=== PATIENT | male | born 1940 | race Caucasian/White ===

== ENCOUNTER → 2017-04-23 | Outpatient (CLI) | payer BC ==
[~2017-04-23] MED LIST: IBUP-1459 PO; [UNRECOGNIZED DRUG - CODE] PO
[2017-04-23 09:33] LABS: BASO % 0.6 %; BASO ABS # 0.02 K/uL (0-0.2); COMPLETE YES; EOS % 2.6 %; IG% 0.3 %; LYMPH % 37.5 %; LYMPH ABS # 1.17 K/uL (1.2-3.4); MEAN CELL VOLUME 95.9 fL (80-100); MEAN CORPUSCULAR HEMOGLOBIN 32.6 pg (25-34); MONO % 13.8 %; NEUT % 45.2 %; PLATELET COUNT 174 K/uL (130-400); RED BLOOD COUNT 4.38 M/uL (4.7-6.1); WHITE BLOOD COUNT 3.12 K/uL (4.8-10.8)
[2017-04-23 09:39] LABS: URINE APPEARANCE CLEAR (CLEAR); URINE BILIRUBIN NEG (NEG); URINE COLOR DK YELLOW; URINE NITRITE NEG (NEG); URINE PH 7.5 (4.5-7.5); URINE SPECIFIC GRAVITY 1.024 (1.000-1.030); UROBILINOGEN NEG (NEG)
[2017-04-23 09:46] LABS: MANUAL MICROSCOPIC REQUIRED? NO; REVIEW REQ? NO
[2017-04-23 09:56] LABS: CALCIUM 9.1 mg/dl (8.5-10.1)
[2017-04-23 10:02] LABS: BLOOD UREA NITROGEN 19 mg/dl (7-18); BUN/CREATININE RATIO 18.7 (10-20); CARBON DIOXIDE 26 mmol/L (21-32); CHLORIDE 106 mmol/L (98-107); CHOLESTEROL 154 mg/dl (0-200); CREATININE 0.99 mg/dl (0.60-1.40); GLUCOSE 93 mg/dl (70-99); SODIUM 141 mmol/L (136-145); TRIGLYCERIDES 82 mg/dl (0-150); VERY LOW DENSITY LIPOPROT CALC 16 mg/dl
[2017-04-23 10:05] LABS: CHOLESTEROL/HDL RATIO 3.1; HDL CHOLESTEROL 49 mg/dl; LDL CHOLESTEROL CALCULATED 89 mg/dl
[2017-04-23 10:06] LABS: ESTIMATED AVERAGE GLUCOSE 111 mg/dl; HA1C FLAG Normal (Normal)
--- NOTE | 2017-04-30 08:17 | CODING QUERY MEDICAL NECESSITY ---
CQSUPPORTING DIAGNOSIS NEEDED A supporting diagnosis is required for the test/procedure performed on this patient in order for us to be reimbursed by the patient's insurance. Please provide a supporting diagnosis for the following test/procedure listed below next to the test name along with your signature. *If there is no additional diagnosis for this patient that would support the following test/procedure please document that below next to the test/procedure. Test(s)/Procedure(s) that require a supporting diagnosis: DOS 04/23/17 GLYCATED HEMOGLOBIN Provider Signature: Date: Thank you Claribel Barrera [facility] Information Management Once completed, please kindly fax back to [phone] For questions please call [phone]
== END ==
LOC: C.LAB1850 07:36
PROVIDERS: ATTEND Internal Medicine
DX: I10 Essential (primary) hypertension (principal); R73.9 Hyperglycemia, unspecified

== ENCOUNTER → 2018-01-17 | Outpatient (CLI) | payer BC ==
[2018-01-17 17:02] LABS: INFLUENZA B ANTIGEN Neg for Influ B (NEG)
== END | disposition home or self-care (01) ==
LOC: C.LAB1850 15:16
PROVIDERS: ATTEND Internal Medicine
DX: J06.9 Acute upper respiratory infection, unspecified (principal)

== ENCOUNTER → 2018-07-07 | Outpatient (CLI) | payer BC ==
[2018-07-07 09:35] LABS: BASO % 0.5 %; BASO ABS # 0.02 K/uL (0-0.2); EOS % 2.6 %; HEMATOCRIT 40.3 % (42-52); HEMOGLOBIN 13.6 g/dL (14.0-18.0); IG# 0.02 K/uL (0.00-0.02); LYMPH % 34.3 %; MEAN CELL VOLUME 97.6 fL (80-100); MEAN CORPUSCULAR HEMOGLOBIN 32.9 pg (25-34); MEAN CORPUSCULAR HGB CONC 33.7 g/dl (32-36); MEAN PLATELET VOLUME 11.6 fL (7.4-10.4); MONO ABS # 0.57 K/uL (0.11-0.59); NEUT % 47.1 %; NEUT ABS # 1.78 K/uL (1.4-6.5); PLATELET COUNT 183 K/uL (130-400); RED CELL DISTRIBUTION WIDTH CV 13.3 % (11.5-14.5); RED CELL DISTRIBUTION WIDTH SD 47.3 fL (36.4-46.3); WHITE BLOOD COUNT 3.79 K/uL (4.8-10.8)
[2018-07-07 09:56] LABS: BLOOD UREA NITROGEN 27 mg/dl (7-18); CALCIUM 9.1 mg/dl (8.5-10.1); CARBON DIOXIDE 29 mmol/L (21-32); CHOLESTEROL 146 mg/dl (0-200); CREATININE 0.88 mg/dl (0.60-1.40); GLUCOSE 86 mg/dl (70-99); LDL CHOLESTEROL CALCULATED 85 mg/dl; POTASSIUM 3.9 mmol/L (3.5-5.1); SODIUM 139 mmol/L (136-145); URIC ACID 5.5 mg/dl (2.6-7.2)
[2018-07-07 10:04] LABS: HEMOGLOBIN A1C 5.4 % (4.5-5.6)
== END | disposition home or self-care (01) ==
LOC: C.LAB1850 08:00
PROVIDERS: ATTEND Internal Medicine
DX: I10 Essential (primary) hypertension (principal)

== ENCOUNTER 2025-05-30 08:08 | Inpatient (IN) ==
--- NOTE | 2025-05-29 09:44 | Anesthesiology Consultation ---
Date of Service May 29, 2025 Assessment & Plan (1) Encounter for pre-operative examination: Chart Review Chart Review: Acceptable Risk for Surgery (pending anesthesia evaluation and review of unconfirmed EKG stat DOS ) and Patient NOT seen in Pre Admission Testing Minimal aortic stenosis- discussed with Dr. Chappell. Most recent ECHO 02/2021. At PCP wellness visit 09/2024 - no significant murmur noted per documentation. No physical limitations per PAT nursing interview. Due to nature of procedure- patient can proceed as scheduled and will be monitored closely perioperatively. -Infectious Disease screening: Per PAT nursing assessment on 05/21/25. No known infectious disease contacts in past 10 days or current infectious disease symptoms. No recent travel outside the country. Seen by PCP 05/10/25= seen for recheck of lungs. Dx'ed with bronchitis at previous appt- treated with Z pack and Prednisone. Patient no longer having symptoms. Scheduled for upcoming carotid surgery and wanted recheck to ensure "everything was clear." Acute bronchitis- resolved. Completed treatment. Exam clear today. "Patient clear for surgery." History Surgery Operation Date: 05/30/25 09:40 Proposed Procedures p Left Transcarotid Artery Revascularization - Twin Mayer MD Height/Weight Height: 5 ft 9 in Weight: 80.739 kg Allergies Allergy/AdvReac Type Severity Reaction Status Date / Time No Known Drug Allergies Allergy Verified 05/21/25 08:23 Medications Home Medications Medication Instructions Recorded Confirmed Last Taken ibuprofen 200 mg tablet 400 mg PO Q6H PRN Pain 03/29/19 05/21/25 04/06/19 06:00 fexofenadine 180 mg tablet 180 mg PO DAILY PRN seasonal 03/31/23 05/21/25 Unknown (Allergy Relief (fexofenadine)) allergies aspirin 81 mg tablet,delayed 81 mg PO QAM 05/21/25 05/21/25 Unknown release cyanocobalamin (vitamin B-12) 1,000 mcg PO QAM 05/21/25 05/21/25 Unknown 1,000 mcg capsule ferrous gluconate 324 mg (38 mg 324 mg PO BID 05/21/25 05/21/25 Unknown iron) tablet omeprazole 40 mg capsule,delayed 40 mg PO QAM 05/21/25 05/21/25 Unknown release rosuvastatin 40 mg tablet 40 mg PO QAM 05/21/25 05/21/25 Unknown telmisartan 40 1 tab PO QAM 05/21/25 05/21/25 Unknown mg-hydrochlorothiazide 12.5 mg tablet Past Medical History Medical History (Updated 05/29/25 @ 09:49 by Jordana Olson PA-C) Anemia Aortic stenosis Minimal per 02/2021 ECHO Carotid stenosis, asymptomatic Per 02/2025 Neck CTA= Left ICA 80% stenosis; Right ICA 60% stenosis Dyslipidemia GERD (gastroesophageal reflux disease) History of Mohs micrographic surgery for skin cancer Hx of basal cell carcinoma Hypertension 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; follows with heme Osteoarthritis Seasonal allergies Past Family History Family History Other No family history of adverse response to anesthesia Denies family history of Ovarian cancer Prostate cancer Breast cancer Colorectal cancer Cancer Past Surgical History Surgical History History of appendectomy History of cataract surgery R/L History of colonoscopy S/P arthroscopy of right shoulder Social History Smoking Status: Former smoker Do You Dip or Chew Tobacco: No Smoking End Date: quit over 50 years ago Hx Alcohol Use: Yes Alcohol type: wine alcohol intake frequency: holidays/special occasions only Hx Substance Use: No substance use type: does not use Lab Results Anesthesia Preop Results Results Anesthesia Widget: WBC 5.14 K/ul (4.8-10.8) 05/29/25 Hgb 12.0 g/dl (14.0-18.0) L 05/29/25 Hct 34.9 % (42.0-52.0) L 05/29/25 Plt 183 K/uL (130-400) 05/29/25 Na 141 mmol/L (136-145) 05/29/25 K 4.1 mmol/L (3.5-5.1) 05/29/25 Cl 106 mmol/L (98-107) 05/29/25 CO2 29 mmol/L (21-32) 05/29/25 BUN 26 mg/dl (6-23) H 05/29/25 Creat 1.02 mg/dl (0.6-1.4) 05/29/25 Glucose Level 93 mg/dl (70-99(Fasting)) 05/29/25 PT 11.1 Seconds (9.0-12.0) 05/29/25 PTT 25 Seconds (21-31) 05/29/25 INR 1.0 (0.9-1.1) 05/29/25 Blood Type O Positive 05/29/25 Antibody Screen NEGATIVE 05/29/25 Testing Electrocardiogram Date: 05/29/25 SB at 55bpm Incomplete RBBB Cannot rule out anterior infarct, age undetermined unconfirmed- will need reviewed by anesthesiologist DOS Chest X-Ray Date: 05/29/25 Findings: + NAD Echocardiogram Date: 02/28/21 EF: 60-65% LV Function: normal RWMA: + none Other Findings: + diastolic dysfunction (Grade I ); no LVH Normal chamber dimensions Aortic valve is trileaflet. Mild AV thickening. No hemodynamically significant valvular aortic stenosis. Based on the calculated MICHELE (1.8cm2) and dimensionless (0.50), the AV is minimally stenosed. Mild MR. Mild TR Mildly elevated estimated RVSP (30-40mmHg) (No murmur noted at 10/23/24 PCP wellness visit) Other Testing Neck CTA 03/15/25= Prominent calcified plaque of the left carotid bulb causes high-grade stenosis of 80%. 60% stenosis at the origin of the right ICA secondary to atherosclerotic plaque. 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 Patent vertebral arteries. No arterial occlusion identified.
[~2025-05-30 08:08] MED LIST changes: +DEXAMETHASONE SOD INJ 4 MG/ML VIAL ONE; +GLYCOPYRROLATE 0.2 MG/ML VIAL ONE; +HEPARIN SOD (PORCINE) 1000 UNIT/ML ONE; -IBUP-1459 PO; +LIDOCAINE 2% 2 ML VIAL/AMP(20MG/ML) INFIL ONE; +MIDAZOLAM HCL 1 MG/ML 2ML VIAL ONE; +ONDANSETRON INJ 2 MG/ML 2 ML VIAL ONE; +PHENYLEPHRINE HCL 25 MG/250 ML NSS IV ONE; +PROPOFOL IV EMULSION 10 MG/ML 20 ML VIAL IV ONE; +PROTAMINE SULFATE 10 MG/ML 5 ML VIAL IV ONE; +ROCURONIUM BROMIDE 10 MG/ML 5 ML VIAL IV ONE; +SUGAMMADEX SODIUM 200 MG/2 ML VIAL IV ONE; -[UNRECOGNIZED DRUG - CODE] PO
--- NOTE | 2025-05-30 08:24 | History & Physical Report ---
Date of Service May 30, 2025 Assessment & Plan (1) Stenosis of left internal carotid artery: Plan: Patient needed manage temporary left TCAR. I have discussed the risks options and benefits of the procedure with the patient. The patient understands the risks options and benefits and agrees to the procedure. he is already on History of Present Illness Chief Complaint: Left internal carotid artery stenosis Primary Care Provider: Erika Jimenez MD We had the pleasure of evaluating Mr Montague at our vascular surgery clinic today. As you know, he is an 84 year old male with history of asymptomatic, high grade left carotid artery stenosis. We last evaluated the patient about a month ago in February 2025 where he had a Duplex performed showing 70-79% stenosis of ICA with an ICA/CCA ratio of 4.5 and diastolic velocities over 90cm/s. We recommended a CTA of the neck for further evaluation and he is here today to discuss the results. On evaluation today, patient continues to deny any symptoms of sudden vision loss or amaurosis fugax, facial droop, difficulty speaking or swallowing, numbness or weakness to the face, unilateral extremity numbness, tingling or weakness. No episodes of aphasia or sudden onset of confusion or word finding difficulty. He states he has been feeling well. His daughter is an ED physician and is very involved in his care and making sure he follows up regarding his care. He is on [id number]. Allergies Allergy/AdvReac Type Severity Reaction Status Date / Time No Known Drug Allergies Allergy Verified 05/21/25 08:23 Home Medications Medication Instructions Recorded Confirmed Type ibuprofen 200 mg tablet 400 mg PO Q6H PRN Pain 03/29/19 05/21/25 History fexofenadine 180 mg tablet 180 mg PO DAILY PRN seasonal 03/31/23 05/21/25 History (Allergy Relief (fexofenadine)) allergies aspirin 81 mg tablet,delayed 81 mg PO QAM 05/21/25 05/30/25 History release cyanocobalamin (vitamin B-12) 1,000 mcg PO QAM 05/21/25 05/21/25 History 1,000 mcg capsule ferrous gluconate 324 mg (38 mg 324 mg PO BID 05/21/25 05/21/25 History iron) tablet omeprazole 40 mg capsule,delayed 40 mg PO QAM 05/21/25 05/30/25 History release rosuvastatin 40 mg tablet 40 mg PO QAM 05/21/25 05/30/25 History telmisartan 40 1 tab PO QAM 05/21/25 05/21/25 History mg-hydrochlorothiazide 12.5 mg tablet acetaminophen 500 mg capsule 1,000 mg (2 x 500 mg) PO DAILY PRN 05/29/25 Rx fever #60 caps clopidogrel 75 mg tablet 75 mg PO DAILY #30 tabs 05/29/25 05/30/25 Rx Past Med/Surg History Problem List (Updated 05/30/25 @ 08:23 by Twin Mayer MD) Stenosis of left internal carotid artery Encounter for pre-operative examination GERD (gastroesophageal reflux disease) Dyslipidemia Carotid stenosis, asymptomatic H/O seasonal allergies Postnasal drip Anemia (Chronic) Bilateral carotid bruits (Chronic) Hypertension (Chronic) Medical History (Updated 05/30/25 @ 08:23 by Twin Mayer MD) Aortic stenosis Minimal per 02/2021 ECHO Osteoarthritis 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; follows with heme Hypertension Seasonal allergies Anemia Carotid stenosis, asymptomatic Per 02/2025 Neck CTA= Left ICA 80% stenosis; Right ICA 60% stenosis Dyslipidemia Hx of basal cell carcinoma GERD (gastroesophageal reflux disease) History of Mohs micrographic surgery for skin cancer Surgical History S/P arthroscopy of right shoulder History of appendectomy History of cataract surgery R/L History of colonoscopy Family History Other No family history of adverse response to anesthesia Denies family history of Ovarian cancer Prostate cancer Breast cancer Colorectal cancer Cancer Social History Smoking Status: Former smoker Age Started Using Tobacco: 18; Age Quit Using Tobacco: 26; Smoking End Date: quit over 50 years ago; Second Hand Exposure: No; Do You Dip or Chew Tobacco: No; Tobacco Cessation Education Requested by Patient: No Hx Alcohol Use: Yes Alcohol type: wine Hx Substance Use: No Preferred Language: Slovak Communication Ability: Effective Air And Water Tester Required: No Beliefs That Will Affect Care: None Current Living Situation: Spouse Other Information That Helps Us Care for You: No Feels Safe at Home: Yes Safety Concerns: Feels Safe At This Time Dental Care, Regularly: Yes Seatbelt Use: always Sunscreen Use: Yes Assistive Devices: Glasses Review of Systems All systems reviewed & are unremarkable except as noted in HPI & below Physical Exam Physical Exam: Constitutional: In general patient is a healthy-appearing well-nourished well- developed elderly male distress. He is alert and oriented without any focal deficits. His left carotid does demonstrate a faint bruit. His heart is regular, lungs are clear. Abdomen is soft nontender with normal active bowel sounds in upper quadrants. Radial brachial and femoral pulse are +3. Lower ext remity distal pulses are +2. He is wrist capillary fill and no sign of distal ischemia.
[2025-05-30] MEDS: LACTATED RINGER'S 1,000 ML IV SCH ×2 (08:57→14:44)
--- NOTE | 2025-05-30 09:43 | History & Physical Bridge Note ---
Date of Service May 30, 2025 History & Physical Bridge Note I have examined the patient, reviewed the History & Physical and in the interval since the performance of the History & Physical I have noted the following changes of clinical significance: no changes noted
[2025-05-30] MEDS ORDERED: ATROPINE SULFATE 0.1 MG/ML 10ML SYR IV PRN (10:05)
[2025-05-30] MEDS ORDERED: ONDANSETRON INJ 2 MG/ML 2 ML VIAL IV PRN (10:05)
[2025-05-30] MEDS ORDERED: GLYCOPYRROLATE 0.2 MG/ML VIAL ONE (12:03)
[2025-05-30] MEDS: GELATIN SPONGE SZ 100 ONE (12:04)
[2025-05-30] MEDS: THROMBIN FOR SOLN 20000 UNIT KIT ONE (12:04)
[2025-05-30] MEDS: VISIPAQUE IV ONE (12:04)
[2025-05-30] MEDS: ceFAZolin 330 MG/ML 1 GM VIAL ONE ×2 (12:05→12:12)
--- NOTE | 2025-05-30 12:08 | Procedure Note ---
Angiogram Post Procedure Fluoroscopy Time (minutes): 2.9 Radiation (mGy): 28 Contrast: 9 Post Operative Report Pre & Post Diagnosis Operation Date: 05/30/25 09:40 Pre-Op Diagnosis: Left Internal Carotid Artery Stenosis Post-Op Diagnosis: Left Internal Carotid Artery Stenosis I identified the patient and participated in the time-out.: Yes Procedure Operation Date: 05/30/25 09:40 Actual Procedures p Left Transcarotid Artery Revascularization(Left), Ultrasound of right common femoral vein - Twin Mayer MD Surgeon Twin Mayer MD Inspection Machine Tender Kimberly,PAC Estimated Blood Loss 20 Findings Consistent with Post-Op Diagnosis Specimens none Anesthesia Type General Complications none Disposition Accompanied Patient To Recovery: No Disposition: Recovery Room Indications This is a gentleman who was found to have a preocclusive lesion of the left internal carotid artery. Intervention was recommended. He elected to go ahead with a TCAR approach. I have discussed the risks options and benefits of the procedure with the patient. The patient understands the risks options and benefits and agrees to the procedure. Description of Procedure The patient was taken to the operating room and placed in supine position. After general anesthesia was accomplished the groins and left side of the neck and chest were prepped and draped in a sterile manner. Timeout was performed and the patient was identified. A transverse incision was made just above the clavicle between the heads of the sternocleidomastoid. This was carried down to where the common carotid artery was identified. It was isolated and slung with an umbilical tape. A U-stitch was then placed in the common carotid artery with 5-0 Prolene. He was given 8000units of heparin at that time. Ultrasound was then used to localize the right common femoral vein. The vein was patent and compressed easily. Under ultrasound guidance the right common femoral vein was punctured and the venous sheath was inserted. This was aspirated and flushed with heparinized saline. An ACT at that time was 275. Using micropuncture technique the common carotid artery was punctured using a tunneling technique.. The micro sheath was inserted to 3 cm. Injection was then done showing the b ifurcation. There was a significant lesion seen just beyond the origin of the internal carotid artery on the left side. We reinserted the micro wire and passed it into the external carotid. We then advanced the dilator and sheath into the external carotid. The dilater and wire were removed. We then inserted the J-wire into the external carotid artery. The TCAR sheath was inserted. Once it was in place and held against the artery it was sutured to the chest wall and the incision edge. We then flushed the tubing appropriately. The venous return tubing was clamped onto the TCAR sheath. It was flushed through and then attached to the venous inflow sheath in the right groin. The sheath was checked for flow. The common carotid artery was then clamped. Flow through the venous return sheath was again checked and found to be adequate. We then inserted a 6 x 35 balloon backloaded on the wire. The wire was passed through the lesion into the petrous portion of the internal carotid. The 6 balloon was then advanced to the lesion. The lesion was then predilated with the 6 mm balloon. The balloon was removed. We then inserted the 10/8 x 40 stent. This was deployed across the lesion without difficulty. The catheter was removed. The carotid was allowed to go 2 minutes with flow reversal. We did another angiogram which showed no residual stenosis and a nicely seated stent.The wire was removed and the common carotid artery was unclamped. The venous return tubing was clamped and removed from the TCAR sheath. The blood was allowed to flow back into the venous system. The TCAR sheath was then removed and the 5-0 Prolene suture securely tied. Hemostasis was noted of the puncture site. The patient was given 25 mg of protamine. Another ACT was performed which was 135. The sheath was pulled from the groin and pressure was applied. Wound was irrigated with Ancef solution. Adequate hemostasis was obtained of the wound. Once this was noted the wound was closed in usual fashion using a 3-0 Vicryl suture for the subcutaneous layer and a 4-0 subcuticular Vicryl suture for the skin edges. Dermabond was used for dressing.The patient left the operation room in satisfactory condition and tolerated the procedure well. All needle and sponge counts were correct at the end of the procedure. Roxy Troncoso Pac assisted due to lack of resident availability and was necessary for positioning, draping, retraction, wound closure deep layers, subcutaneous tissue, and skin closure and was necessary for assisting with the case. I attest to the content of the Intraoperative Record and any orders documented therein. Any exceptions are noted below.
[2025-05-30] MEDS: SURGICEL ABSORB HEMOSTAT 2IN X 14IN TOP ONE (12:12)
[2025-05-30] MEDS: BUPIVACAINE/EPINEPHRINE 0.5% MPF 1:200,000 30 ML VIAL ONE (12:12)
[2025-05-30] MEDS: ARISTA ABSORBABLE HEMOSTAT 3GM TOP ONE (12:22)
--- NOTE | 2025-05-30 13:33 | Anesthesiology Progress Note ---
Date of Service May 30, 2025 Anesthesia Post Procedure Vital Signs Vital Signs: Temp Pulse Pulse Resp BP BP BP 05/30/25 13:20 36.2 C L 93 H 12 105/61 110/45 L 05/30/25 13:10 89 12 107/58 L 106/45 L 05/30/25 13:00 90 12 117/63 106/44 L 05/30/25 12:50 88 16 119/65 112/64 05/30/25 12:45 36.0 C L 105 H 20 114/63 05/30/25 08:28 36.8 C 56 L 20 153/74 H 149/69 H Pulse Ox O2 Del Method O2 Flow Rate 05/30/25 13:20 95 Room Air 05/30/25 13:10 94 Room Air 05/30/25 13:00 95 Room Air 05/30/25 12:50 98 Oxymask 4 05/30/25 12:45 98 Oxymask 6 05/30/25 08:28 97 Room Air Transfer of Care Handoff Completed per policy Notes Mental Status: alert / awake / arousable Patient Amnestic to Procedure: Yes Nausea / Vomiting: adequately controlled Pain: adequately controlled Airway Patency, RR, SpO2: stable & adequate BP & HR: stable & adequate Hydration State: stable & adequate Anesthetic Complications: no major complications apparent and Pt Satisfied with anesthetic care
[2025-05-30] MEDS ORDERED: STAT IV Infusion **Titration per Protocol STA (14:27)
[2025-05-30] MEDS ORDERED: FEXOFENADINE HCL 180 MG TAB PO PRN (14:27)
[2025-05-30] MEDS ORDERED: PHENYLEPHRINE/NSS 25 MG/250 ML BAG IV PRN (14:27)
[2025-05-30] MEDS ORDERED: IBUPROFEN 200 MG TAB PO PRN (14:27)
--- NOTE | 2025-05-30 19:06 | Critical Care Consultation ---
Date of Consultation May 30, 2025 Assessment & Plan (1) Stenosis of left internal carotid artery: (2) GERD (gastroesophageal reflux disease): (3) Dyslipidemia: (4) Hypertension: Plan Reason Critically Ill: 85 YOM presents s/p LEFT TCAR - POD #0 for routine postoperative monitoring. Neuro - S/P LT TCAR CAM ICU: NEGATIVE - no deficits, noted swelling to left TCAR site and groin- follow airway patent- surgeion updated by nursing staff - Pain control per surgery team Cardiac - Hx HTN, HLD - natiplatlet medications per surgical team - follow hemodynamics- vasoactive medication per surgery team Respiratory - No acute needs - Follow airway with swelling of LT TCAR site- as above - Hoarness following removal of ETT- should improve with time- if not consider ENT flexscope eval of chords GI - No acute needs RENAL/LYTES - No acute needs - No acute needs - COntinue PPI ENDO - No acute needs - goal BG <180mg/dl - ICU hyperglycemia protocol HEME - No acute needs - transufsion per primary service disrression ID - No concern for active infective process at this time LINES/IV ACCESS - PIV, arterial line Continue use of these lines DVT PROPHYLAXIS - SCDS DISPO: ICU overnight for continuous monitoring of hemodynamics, NV and CV status. I have personally spent 35 minutes of time in the direct management of this patient. This is a life/limb threatening event. This includes time spent evaluating patient, direct bedside care, chart review, placing orders, interpretation of diagnostic studies, discussion with consultants, patient, and family members, as well as other required patient management activities. This time is exclusive of all separately billable procedures, and teaching time and separate from and in addition to any other critical care service time. Thank you for allowing us to participate in the care of this patient. Please refer to my attending physician's documentation for any further recommendations. Supervising Physician Co-Signing Physician Notes Critical care will sign off History of Present Illness Reason for Consultation: Monitoring following TCAR Requesting Physician: Twin Mayer MD Attending Physician: Twin Mayer MD History of Present Illness 85 YOM with medical history of: HTN, MGUS, HLD, previous smoker, hoarnseness, OA, macrocytic anemia. Patient reports for Left TCAR secondary to LICA stenosis. Patient is POD #0 and to the ER. Patient was seen in the ICU on evening rounds. He is extubated and on room air, tolerating diet. Case reviewed with nurse at bedside with current concern for hematoma at LT. TCAR site and RT Groin site. Patient with mild swelling at LET TCAR site and following ice application and patient keeping head still, they both feel that this has decreased. There is no stridor and airway is patent. Patient remains in ICU overnight to follow hemodynamics as well as nV/CV exams of lower extremities. Currently on no vasoactive medications. CODE: FULL Allergies Allergy/AdvReac Type Severity Reaction Status Date / Time No Known Drug Allergies Allergy Verified 05/21/25 08:23 Home Medications Medication Instructions Recorded Confirmed Type ibuprofen 200 mg tablet 400 mg PO Q6H PRN Pain 03/29/19 05/30/25 History fexofenadine 180 mg tablet 180 mg PO DAILY PRN seasonal 03/31/23 05/30/25 History (Allergy Relief (fexofenadine)) allergies aspirin 81 mg tablet,delayed 81 mg PO QAM 05/21/25 05/30/25 History release cyanocobalamin (vitamin B-12) 1,000 mcg PO QAM 05/21/25 05/30/25 History 1,000 mcg capsule ferrous gluconate 324 mg (38 mg 324 mg PO BID 05/21/25 05/30/25 History iron) tablet omeprazole 40 mg capsule,delayed 40 mg PO QAM 05/21/25 05/30/25 History release rosuvastatin 40 mg tablet 40 mg PO QAM 05/21/25 05/30/25 History telmisartan 40 1 tab PO QAM 05/21/25 05/30/25 History mg-hydrochlorothiazide 12.5 mg tablet clopidogrel 75 mg tablet 75 mg PO DAILY #30 tabs 05/29/25 05/30/25 Rx acetaminophen 500 mg capsule 1,000 mg PO DAILY PRN Pain 05/30/25 05/30/25 His tory midodrine 2.5 mg tablet 5 mg (2 x 2.5 mg) PO 05/31/25 Rx TID@0800,1200,1700 #15 tabs oxycodone-acetaminophen 5 mg-325 1 tab PO Q6H PRN pain #10 tabs 05/31/25 Rx mg tablet (Percocet) Patient History Medical History (Updated 05/31/25 @ 12:20 by Twin Mayer MD) Aortic stenosis Minimal per 02/2021 ECHO Osteoarthritis 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; follows with heme Hypertension Seasonal allergies Anemia Carotid stenosis, asymptomatic Per 02/2025 Neck CTA= Left ICA 80% stenosis; Right ICA 60% stenosis Dyslipidemia Hx of basal cell carcinoma GERD (gastroesophageal reflux disease) History of Mohs micrographic surgery for skin cancer Surgical History (Updated 05/31/25 @ 12:22 by Twin Mayer MD) S/P arthroscopy of right shoulder History of appendectomy History of cataract surgery R/L History of colonoscopy Family History Other No family history of adverse response to anesthesia Denies family history of Ovarian cancer Prostate cancer Breast cancer Colorectal cancer Cancer Social History Smoking Status: Former smoker Age Started Using Tobacco: 18; Age Quit Using Tobacco: 26; Second Hand Exposure: No; Do You Dip or Chew Tobacco: No; Hx Alcohol Use: Yes Alcohol type: wine Hx Substance Use: No Preferred Language: [place] Communication Ability: Effective Cost Manager Required: No Beliefs That Will Affect Care: None Current Living Situation: Spouse Feels Safe at Home: Yes Dental Care, Regularly: Yes Seatbelt Use: always Sunscreen Use: Yes Assistive Devices: Cane, Crutches and Walker Review of Systems Review of Systems: REVIEW OF SYSTEMS: Constitutional: No fever, sweats or chills Eyes: No diplopia, no worsening or blurred vision ENT: normal hearing, no trouble swallowing Respiratory: No cough, sputum, dyspnea at rest or on exertion Cardiovascular: No chest pain, tightness or palpitations Abdomen: No pain, nausea, vomiting, diarrhea or constipation Musculoskeletal: No joint pain, calf pain, swelling Neurologic: No weakness, numbness/tingling, or balance problems Psychiatric: No anxiety or depression Skin: No rash or itch Physical Exam Physical Exam: PHYSICAL EXAM: General: awake, alert, no apparent distress Head: Normocephalic, atraumatic Neuro: AAO x 3, speech clear and appropriate, strength intact bilaterally 5/5, sensation intact and equal all extremities, no pronator drift Chest: equal rise and fall of the chest, no accessory muscle use, no heaves or thrills, Clear to auscultation, on room air, swelling to LT neck, no stridor and now wheezing noted Cardiac: Regular rate and rhythm, telemetry reviewed, skin warm dry, cap refill <3 seconds, peripheral pulses +2 no JVD, no murmur, small hematoma to right groin, peripheral pulses strong and extremities warm GI: NABS x 4 quadrants, soft, nontender to palpation, no rebound, guarding or tenderness : Spontaneously voiding, no pain, no CVA tenderness, Skin: no rash or erythema Results & Data Results & Data Vital Signs (Past 12 Hours) Vital Signs Temp Pulse Pulse Resp BP BP BP 05/30/25 18:00 94 H 16 123/73 05/30/25 17:27 94 H 16 137/72 05/30/25 16:27 36.5 C 100 H 16 123/73 05/30/25 15:27 88 18 126/66 05/30/25 14:27 36.5 C 95 H 18 140/77 05/30/25 13:40 89 12 111/59 L 101/48 L 05/30/25 13:30 84 13 110/64 104/46 L 05/30/25 13:20 36.2 C L 93 H 12 105/61 110/45 L 05/30/25 13:10 89 12 107/58 L 106/45 L 05/30/25 13:00 90 12 117/63 106/44 L 05/30/25 12:50 88 16 119/65 112/64 05/30/25 12:45 36.0 C L 105 H 20 114/63 05/30/25 08:28 36.8 C 56 L 20 153/74 H 149/69 H Pulse Ox O2 Del Method O2 Flow Rate 05/30/25 18:00 94 Room Air 05/30/25 17:27 94 Room Air 05/30/25 16:27 94 Room Air 05/30/25 15:27 95 Room Air 05/30/25 14:27 95 Room Air 05/30/25 13:40 98 Nasal Cannula 2 05/30/25 13:30 98 Nasal Cannula 2 05/30/25 13:20 95 Room Air 05/30/25 13:10 94 Room Air 05/30/25 13:00 95 Room Air 05/30/25 12:50 98 Oxymask 4 05/30/25 12:45 98 Oxymask 6 05/30/25 08:28 97 Room Air Laboratory Results Abnormal lab results 05/30/25 05/30/25 Range/Units 11:11 14:11 Activ Coag Time Kaolin 273 H (94-140) SECONDS POC Glucose 123 H (70-99) mg/dl Coding Level of Care Code 75307 IN/OBS CONSULT LVL 2,35M Diagnoses Stenosis of left internal carotid artery I65.22 GERD (gastroesophageal reflux disease) K21.9 Dyslipidemia E78.5 Hypertension I10
[2025-05-30] MEDS: FERROUS GLUCONATE 324 MG TAB PO SCH (19:37)
[2025-05-31] MEDS: COUGH DROP (SUGAR FREE) LOZ 24 LOZ/1 BOX BUCCAL PRN (01:29)
[2025-05-31] MEDS: ASPIRIN 81 MG ECTAB PO SCH (07:42)
[2025-05-31] MEDS: CLOPIDOGREL BISULFATE 75 MG TAB PO SCH (07:42)
[2025-05-31] MEDS: hydroCHLOROthiazide 25 MG TAB PO SCH (07:43)
[2025-05-31] MEDS: CYANOCOBALAMIN (B-12) 500 MCG TABLET PO SCH (07:43)
[2025-05-31] MEDS: LOSARTAN POTASSIUM 50 MG TAB PO SCH (07:44)
[2025-05-31] MEDS: ROSUVASTATIN CALCIUM 20 MG TAB PO SCH (07:44)
[2025-05-31 08:24] VITALS: TEMP 98.6
[2025-05-31] MEDS ORDERED: NON-FORMULARY MEDICATION (Telmisartan-Hydrochlorothiazid 40-12.5 mg tablet) PO SCH (09:00)
[2025-05-31] MEDS: MIDODRINE HCL 2.5 MG TAB PO SCH (10:25)
[2025-05-31 10:42] VITALS: O2SAT 95
--- NOTE | 2025-05-31 12:18 | Surgery Progress Note ---
Date of Service May 31, 2025 Assessment & Plan (1) Stenosis of left internal carotid artery: Plan: POD 1 from a left tcar. Doing well Will d/c today (2) Postoperative hypotension: Plan: Patient had intermittent post op hypotension. Will send on a low dose of midodrine. Admission and Anticipated Discharge Date Admission Date: May 30, 2025 Subjective Patient without complaints. Denies any focal deficits. Physical Exam Constitutional: WD/WN, vitals as above Respiratory: normal respiratory effort; no respiratory distress Cardiovascular: Rate/Rhythm: regular rate and regular rhythm Skin: + incision (dry and clean) Neurologic: CN's II-XI intact bilaterally and moves all extremities Psychiatric: A+Ox3, euthymic affect Results & Data Vital Signs (Past 12 Hours) Vital Signs Temp Pulse Pulse Resp BP BP Pulse Ox 05/31/25 10:00 57 L 16 75/40 L 95 05/31/25 09:00 51 L 16 84/42 L 97 05/31/25 08:00 37.0 C 68 18 110/48 L 95 05/31/25 06:12 68 18 96 05/31/25 06:03 95 05/31/25 05:57 61 14 92 05/31/25 05:54 62 16 94 05/31/25 05:42 61 17 94 05/31/25 05:30 59 L 17 93 05/31/25 05:21 60 16 96 05/31/25 05:15 61 16 96 05/31/25 05:06 62 14 93 05/31/25 04:39 60 20 94 05/31/25 04:36 67 20 93 05/31/25 04:15 61 16 93 05/31/25 04:06 61 17 92 05/31/25 04:00 101/53 L 05/31/25 04:00 101/53 L 05/31/25 03:51 58 L 19 95 05/31/25 03:45 62 23 94 05/31/25 03:30 66 16 93 05/31/25 03:18 65 93 05/31/25 03:06 63 21 95 05/31/25 03:00 37 C 05/31/25 02:54 63 15 93 05/31/25 02:24 67 17 92 05/31/25 02:03 64 15 94 05/31/25 02:01 132/63 05/31/25 02:01 132/63 05/31/25 02:01 132/63 05/31/25 01:24 69 17 95 05/31/25 01:21 74 14 95 05/31/25 01:18 75 93 05/31/25 01:00 58 L 18 97 05/31/25 00:30 70 16 92 05/31/25 00:27 73 17 93 O2 Del Method 05/31/25 10:00 Room Air 05/31/25 09:00 Room Air 05/31/25 08:00 Room Air 05/31/25 06:12 05/31/25 06:03 05/31/25 05:57 05/31/25 05:54 05/31/25 05:42 05/31/25 05:30 05/31/25 05:21 05/31/25 05:15 05/31/25 05:06 05/31/25 04:39 05/31/25 04:36 05/31/25 04:15 05/31/25 04:06 05/31/25 04:00 05/31/25 04:00 05/31/25 03:51 05/31/25 03:45 05/31/25 03:30 05/31/25 03:18 05/31/25 03:06 05/31/25 03:00 05/31/25 02:54 05/31/25 02:24 05/31/25 02:03 05/31/25 02:01 05/31/25 02:01 05/31/25 02:01 05/31/25 01:24 05/31/25 01:21 05/31/25 01:18 05/31/25 01:00 05/31/25 00:30 05/31/25 00:27
--- NOTE | 2025-05-31 12:47 | Discharge Summary ---
Date of Service May 31, 2025 Admission HPI Per Admitting Provider We had the pleasure of evaluating Mr Montague at our vascular surgery clinic today. As you know, he is an 84 year old male with history of asymptomatic, high grade left carotid artery stenosis. We last evaluated the patient about a month ago in February 2025 where he had a Duplex performed showing 70-79% stenosis of ICA with an ICA/CCA ratio of 4.5 and diastolic velocities over 90cm/s. We recommended a CTA of the neck for further evaluation and he is here today to discuss the results. On evaluation today, patient continues to deny any symptoms of sudden vision loss or amaurosis fugax, facial droop, difficulty speaking or swallowing, numbness or weakness to the face, unilateral extremity numbness, tingling or weakness. No episodes of aphasia or sudden onset of confusion or word finding difficulty. He states he has been feeling well. His daughter is an ED physician and is very involved in his care and making sure he follows up regarding his care. He is on [id number]. Admission Exam Per Admitting Provider Constitutional: In general patient is a healthy-appearing well-nourished well- developed elderly male distress. He is alert and oriented without any focal deficits. His left carotid does demonstrate a faint bruit. His heart is regular, lungs are clear. Abdomen is soft nontender with normal active bowel sounds in upper quadrants. Radial brachial and femoral pulse are +3. Lower extremity distal pulses are +2. He is wrist capillary fill and no sign of distal ischemia. Principal Diagnosis Left internal carotid artery stenosis Discharge Exam Constitutional: In general patient is a healthy-appearing well-nourished well- developed elderly male distress. He is alert and oriented without any focal deficits. His left carotid does demonstrate a faint bruit. His heart is regular, lungs are clear. Abdomen is soft nontender with normal active bowel sounds in upper quadrants. Radial brachial and femoral pulse are +3. Lower extremity distal pulses are +2. He is wrist capillary fill and no sign of distal ischemia. Constitutional WD/WN, vitals as above Respiratory normal respiratory effort; no respiratory distress Cardiovascular Rate/Rhythm: regular rate and regular rhythm Skin + incision (dry and clean) Neurologic CN's II-XI intact bilaterally and moves all extremities Psychiatric A+Ox3, euthymic affect Discharge Data Allergies Allergy/AdvReac Type Severity Reaction Status Date / Time No Known Drug Allergies Allergy Verified 05/21/25 08:23 Consultations 05/30/25 14:27 Consult Floodplain Manager Routine Procedures Performed Operation Date: 05/30/25 09:40 Actual Procedures p Left Transcarotid Artery Revascularization(Left) - Twin Mayer MD Ordered Studies 05/30/25 07:34 EV angio carotid cerv LT Routine US EV guide vascular access Routine Hospital Course (1) Stenosis of left internal carotid artery: POD 1 from a left tcar. Doing well Will d/c today (2) Postoperative hypotension: Patient had intermittent post op hypotension. Will send on a low dose of midodrine. Total Time Total Time Spent Total Time Spent (In Minutes): x Discharge Plan Discharge Items Patient Disposition: Home - Self-Care Reason For Visit: Left Internal Carotid Artery Stenosis Discharge Diagnosis: Left internal carotid artery stenosis Activity: Per Instructions section Bathing Comment: May shower starting tomorrow Non-emergency contact: Surgeon Call non-emergency contact if: your temperature is above 101.5, your wound has increased redness, your wound has increased drainage and your wound pain has increased Follow-up/Referrals: Erika Jimenez MD [Primary Care Provider] - 06/05/25 2:30 pm (Primary Care hospital follow up scheduled on 06/05/25 at 2:[address] Gurrola) Diet: Heart Healthy Addtl Attending Provider Instructions: SPECIAL CARE INSTRUCTIONS: Diet: * You may return to previous diet. Medications: * Continue to take Aspirin, plavix and statin as directed. Incision Care: * You may shower, but do not rub incision. You may let the warm soapy water run over it. Be sure to dry the incision well after bathing. * Do not shave directly over the incision until it is healed. * DO NOT IMMERSE THE INCISION IN A TUB/POOL/etc. UNTIL HEALED. Restrictions: * Do not drive for at least one week or if you are still taking any narcotic pain medication. * Do not lift anything heavier than a gallon of milk for one week after going home. Possible Complications: * Numbness - It is normal to have some numbness around the incision. Numbness can extend beyond the incision to areas of the neck, ear and face. The numbness is due to bruising of nerves during the surgery and will gradually improve over a period of months. * Hoarseness/Difficulty Speaking and Swallowing - The bruising of nerves in the neck can also cause a hoarse voice, difficulty speaking or swallowing. This may improve over time, HOWEVER, if it continues for more than a few days please contact our office ([phone]). * Excessive Swelling - There will be some swelling immediately after surgery which usually resolves within one week. If you notice that the swelling is getting worse, notify your surgeon ([phone]). * Drainage/Bleeding - If there is any drainage or bleeding, it should be a very small amount (less than a teaspoon per day). If you have excessive bleeding or drainage from the incision, call your surgeon ([phone]) right away. ACTIVATION OF EMERGENCY MEDICAL SYSTEM: Call 911, immediately, if you experience any of the following: Warning Signs and Symptoms of Stroke: * Sudden numbness or weakness of the face, arm or leg, especially on one side of the body * Sudden confusion, trouble speaking or understanding * Sudden trouble seeing in one or both eyes * Sudden trouble walking, dizziness, loss of balance or coordination * Sudden severe headache with no cause Do not delay calling 911 if you experience any warning signs or symptoms of a stroke. Delay in seeking medical attention may affect what treatments can be given to you. Risk Factors for Stroke: You can reduce your chances of stroke by working with your medical provider to adopt a healthy lifestyle. Some specific ways to lower your chance of stroke are: * If you are a smoker, now is the time to stop smoking cigarettes * If you are diabetic, improve the control of your blood sugars * Avoid excessive amounts of alcohol * Control high blood pressure * Lose weight if you are overweight * Be sure to lead an active lifestyle * Eat a healthy diet low in salt, cholesterol and fat You should know about other risk factors for stroke that you are unable to control. These include: * Age 55 years or older * Male gender * Certain racial groups: , or / * Family History of Stroke, Mini stroke or Heart Attack * Sickle Cell Disease You will be receiving a call from the Vascular Surgery Nurse after you are discharged. FOLLOW UP VISIT: It is important for you to keep your follow up appointments with your medical provider. Keep any scheduled doctor appointments. Call [phone] to schedule a follow up appointment if one not already scheduled. Pending Studies at Discharge: No Stand-Alone Forms: My [facility], Smoking Cessation Medications and DC Order Prescriptions: New oxycodone-acetaminophen [Percocet] 5-325 mg Tablet 1 tab PO Q6H PRN (Reason: pain) Qty: 10 0RF midodrine 2.5 mg Tablet 5 mg PO TID@0800,1200,1700 Qty: 15 0RF Continued clopidogrel 75 mg tablet 75 mg PO DAILY Qty: 30 2RF fexofenadine [Allergy Relief (fexofenadine)] 180 mg tablet 180 mg PO DAILY PRN (Reason: seasonal allergies) ibuprofen 200 mg Tablet 400 mg PO Q6H PRN (Reason: Pain) Hold Instructions: On aspirin. Will try Tylenol telmisartan-hydrochlorothiazid 40-12.5 mg tablet 1 tab PO QAM omeprazole 40 mg capsule,delayed release(DR/EC) 40 mg PO QAM aspirin 81 mg tablet,delayed release (DR/EC) 81 mg PO QAM rosuvastatin 40 mg tablet 40 mg PO QAM ferrous gluconate 324 mg (38 mg iron) tablet 324 mg PO BID cyanocobalamin (vitamin B-12) 1,000 mcg capsule 1,000 mcg PO QAM acetaminophen 500 mg capsule 1,000 mg PO DAILY PRN (Reason: Pain) Discharge Orders: Discharge Order (Routine); Ordered 05/31/25 Ordered By: Twin Mayer Admission Data Admit Date/Time: 05/30/25 09:43 Attending Provider: Twin Mayer Admit Provider: Twin Mayer Primary Care Provider: Erika Jimenez Other Providers: Cruz Whitehead; Darío Call; Tony Andrade; Natalie Chirinos; Vamsi El; Thao Elder; Varun Marcelino
[2025-05-31 12:52] VITALS: RESP 18
[2025-05-31 12:59] VITALS: BP 137/72; PULSE 57
== END 2025-05-31 13:15 | disposition home or self-care (01) | DRG 36 ==
LOC: ASU 08:08 → 1E 09:43
PROC: EV.TCAR (2025-05-30 09:40)